=== PATIENT | male | born 1970 | race Caucasian/White ===

== ENCOUNTER 2018-07-14 09:55 | Day surgery (SDC) | payer OTHER ==
[2018-07-14] VITALS (9 sets, daily range): BP systolic 108–121; BP diastolic 69–85; PULSE 68–70; RESP 17–18; Ht 170.2 cm; Wt 75.7 kg
[~2018-07-14] VITALS: Ht 170.2 cm; Wt 75.7 kg
[~2018-07-14 09:55] MED LIST: APIX5TAB PO; CARV6.2579 PO; CEFAZOLIN 1 GM INJ ONE; CEFAZOLIN 1 GM/50 ML (PMX) 50 ML IVPB ONE; DIGITEK PO; LISI-313 PO; PROPOFOL 200 MG INJ ONE; SOT120 PO
[2018-07-14] MEDS ORDERED: APIX5TAB PO (10:28)
[2018-07-14] MEDS ORDERED: THIA50TA10 PO (10:29)
[2018-07-14] MEDS ORDERED: DILT240C62 PO (10:30)
[2018-07-14] MEDS ORDERED: LOSA25TA6 PO (10:30)
[2018-07-14] MEDS ORDERED: CARV6.2579 PO (10:32)
[2018-07-14] MEDS ORDERED: FOLI-49 PO (10:32)
--- NOTE | 2018-07-14 11:17 | PREAC ---
Date/Time of Note Date/Time of Note DATE: 07/14/18 TIME: 11:08 Anesthesia Eval and Record Evaluation Time Pre-Procedure Interview DATE: 07/14/18 TIME: 11:08 Age 47 Sex male NPO: 8 hrs Preoperative diagnosis battery end of life Planned procedure ICD battery change out Past Medical History Past Medical History: Includes Cardio: HTN, Dyslipidemia, Arrythmia (A-fib), PPM/AICD, CHF GI: GERD Psych: Anxiety Infection(s): Hep C Surgery & Anesthesia Issues No known issue Meds Anticoagulation: Yes Beta Patricia within 24 hr: Yes Reported Medications Carvedilol* (Carvedilol*) 6.25 Mg Tablet, 6.25 MG PO BID, #60 TAB 07/14/18 Folic Acid* (Folic Acid*) 1 Mg Tablet, 1 MG PO DAILY, TAB 07/14/18 Diltiazem Hcl* (Cartia XT*) 240 Mg Cap.sr.24h, 240 MG PO DAILY, #30 CAP 07/14/18 Losartan Potassium* (Losartan Potassium*) 25 Mg Tablet, 25 MG PO DAILY, TAB 07/14/18 Thiamine* (Vitamin B-1*) 50 Mg Tablet, 50 MG PO DAILY, TAB 07/14/18 Apixaban* (Eliquis*) 5 Mg Tablet, 5 MG PO BID, TAB 07/14/18 Discontinued Reported Medications Sotalol Hcl (Sotalol) 120 Mg Tablet, 80 MG PO BID, TAB 09/15/15 Lisinopril* (Lisinopril*) 5 Mg Tablet, 5 MG PO DAILY, #30 TAB 09/15/15 Apixaban* (Eliquis*) 5 Mg Tablet, 5 MG PO BID, TAB 09/15/15 Carvedilol* (Carvedilol*) 6.25 Mg Tablet, 6.25 MG PO BID, #60 TAB 09/15/15 [Digitek] No Conflict Check, PO 09/15/15 Meds reviewed: Yes Allergies Coded Allergies: iodine (Unverified Allergy, Severe, RASH, THROAT SWELLING, 07/14/18) Allergies Reviewed: Yes Labs/Studies Labs Reviewed: Reviewed by anesthesiologist Result Diagram: 07/14/18 1039 Laboratory Tests 07/14/18 10:39 test: N/A Studies: ECG (pacemaker), 2D Echo (EF 50%) Pre-procedure Exam Last vitals Vital Signs Date Temp Pulse Resp B/P (MAP) Pulse Ox O2 O2 Flow FiO2 Time Delivery Rate 07/14/18 98.0 70 18 120/75 98 Room Air 10:52 (90) Airway: Adequate mouth opening Mallampati: Mallampati I Teeth: Abnormal (missing teeth in right back bottom) Lung: Normal Heart: Normal ASA Physical Status ASA physical status: 3 Emergency: None Planned Anesthetic General/MAC: MAC Pre-operative Attestations Prior to commencing anesthesia and surgery, the patient was re-evaluated, there was verification of: *The patient's identity *The results of appropriate recent lab work and preoperative vital signs *The above evaluation not changing prior to induction *Anesthetic plan, risk benefits, alternative and complications discussed with patient/family; questions answered; patient/family understands, accepts and wishes to proceed. CIPRIANO ALMANZAR Jul 14, 2018 11:17
[2018-07-14] MEDS ORDERED: LIDOCAINE 1% (MPF) 30 ML INJ ONE (11:47)
[2018-07-14] MEDS ORDERED: FENTAnyl 50 MCG/ML VIAL ONE ×2 (11:54→15:35)
[2018-07-14] MEDS ORDERED: MIDAZOLAM 1 MG/ML 2 ML INJ ONE ×2 (11:54→15:19)
[2018-07-14] MEDS ORDERED: hydrALAzine 20 MG INJ IV PRN (12:00)
[2018-07-14] MEDS ORDERED: LABETALOL HCL 20MG INJ IV PRN (12:00)
[2018-07-14] MEDS ORDERED: HYDROmorphONE 1 MG/5 ML IV SYRINGE IV PRN ×2 (12:00)
[2018-07-14] MEDS ORDERED: FENTAnyl 50 MCG/ML VIAL IV PRN ×2 (12:00)
[2018-07-14] MEDS ORDERED: METOCLOPRAMIDE 10 MG INJ IV PRN (12:00)
[2018-07-14] MEDS ORDERED: ONDANSETRON 4 MG INJ IV PRN (12:00)
--- NOTE | 2018-07-14 12:15 | RADRPT ---
Vent Rate: 70 bpm RR Interval: 0 msec MS Interval: 184 msec QRS Duration: 104 msec QT Interval: 454 msec QTC Interval: 490 msec P-R-T [place]: 70 - -1 - 47 degrees Electronic atrial pacemaker Prolonged QT Abnormal ECG Electronically Signed By: Stanley Haley [id number]
[2018-07-14] MEDS ORDERED: BUPIVACAINE 0.5%/EPI (SDV) 30 ML INJ ONE (15:06)
--- NOTE | 2018-07-14 15:43 | SIPON ---
Date/Time of Note Date/Time of Note DATE: 07/14/18 TIME: 15:42 Operative Report Preoperative Diagnosis ICD change out Postoperative Diagnosis same due to battery end of life Operation/Procedure Performed icd change out Surgeon see signature line assistant auditor none Anesthesia: MAC Estimated blood loss: none Transfusion Required none Specimen icd change out Grafts/Implants none Complications none BRANDAN COSTELLO MD Jul 14, 2018 15:43
--- NOTE | 2018-07-14 15:45 | NUR ---
MARIELA JACOME AICD BATTERY EXCHANGE. VSS NO ACUTE RESP DISTRESS NOTED. SR ON TELE 69. COND STABLE. Addendum: 07/14/18 at 1615 by VINAY FOWLER RN Amended: Links added.
--- NOTE | 2018-07-14 16:25 | NUR ---
PT IS S/P AICD BATTERY CHANGE. DRESSING CDI. D/C INSTRUCTIONS AND F/U APPT DISCUSSED. PT DCD VIA W/C AND ESCORTED BY VOLUNTEER.
--- NOTE | 2018-07-14 16:30 | NUR ---
PACU TRANSFERRED TO [facility] IN STABLE COND. PAIN 0. UPDATED ON PT COND. REPORT GIVEN TO JAROD SHANKS. Addendum: 07/14/18 at 1651 by VINAY FOWLER RN Amended: Links added.
--- NOTE | 2018-07-14 23:50 | OPR ---
DATE OF OPERATION: 07/14/2018 INDICATION FOR THE PROCEDURE: End of life on the implantable cardiac defibrillator, nonischemic card iomyopathy, hypertension, hyperlipidemia. The patient has also had a history of VT; and therefore, the initial implant was for that reason. Now, the patient's device is at near end of life and therefore presents for replacement. NAME OF PROCEDURE: 1. ICD interrogation and reprogramming prior to procedure. 2. ICD interrogation and reprogramming post procedure. 3. Removal of the implantable defibrillator. 4. Implantation of a new defibrillator. 5. Right atrial pacing recording. 6. Right ventricular pacing recording. 7. O2 sat monitoring and blood pressure monitoring. 8. Pocket revision. 9. Defibrillation threshold testing. 10. External cardioversion x1. DESCRIPTION OF PROCEDURE: After informed consent was obtained by the patient, the patient was bisi t to the cardiac operating room where the patient's left chest and neck region was prepped and draped in usual sterile fashion. Following this, 1% lidocaine was used in order to infiltrate at the left deltopectoral groove. The device was then removed from the pocket. Following this, device and leads were tested one by one. Then, following this, the pocket was revised; and following this, the patie nt had the new device brought to the field. The new device and leads were connected to each other an d placed into the pocket. Pocket was sutured using 2-0 Vicryl and 4-0 Vicryl, and the patient had a DFT testing and cardioversion and left the cardiac operating room in stable condition. IMPLANTED MATERIAL: [employer] [address] 2357, serial number [id number]. The implant octavio e is 07/14/2018. EXPLANTED MATERIAL: [employer], [address] DR 2357-40Q, serial number [id number]. IMPRESSION: Successful replacement of an implantable defibrillator with no complications. Dictated By: BRANDAN COSTELLO MD, LP/JUSTIN Conf#: [id number] DID#: [id number]
== END 2018-07-14 17:03 | disposition home or self-care (01) ==
LOC: SDS 09:55
PROVIDERS: ATTEND Internal Medicine
DX: Z45.02 Encounter for adjustment and management of automatic implantable cardiac defibrillator (principal); I48.0 Paroxysmal atrial fibrillation; E78.5 Hyperlipidemia, unspecified; I11.0 Hypertensive heart disease with heart failure; I50.9 Heart failure, unspecified; I42.9 Cardiomyopathy, unspecified; R94.31 Abnormal electrocardiogram [ECG] [EKG]
CPT/HCPCS: 33263; 80048; 85025; 85610; 85730; 88300; 93005; J0690; J2250; J3010; Z7512; Z7610

== ENCOUNTER 2018-12-01 07:28 | Day surgery (SDC) | payer OTHER ==
[~2018-12-01] VITALS: Ht 170.2 cm; Wt 77.1 kg
[~2018-12-01 07:28] MED LIST changes: -CEFAZOLIN 1 GM INJ ONE; -CEFAZOLIN 1 GM/50 ML (PMX) 50 ML IVPB ONE; -DIGITEK PO; +DILT240C62 PO; +FOLI-49 PO; -LISI-313 PO; +LOSA25TA12 PO; -PROPOFOL 200 MG INJ ONE; -SOT120 PO; +THIA50TA10 PO
[2018-12-01 08:31] VITALS: Ht 170.2 cm; Wt 77.1 kg
[2018-12-01] MEDS ORDERED: AMIODARONE (08:40)
--- NOTE | 2018-12-01 09:19 | PREAC ---
Date/Time of Note Date/Time of Note DATE: 12/01/18 TIME: :18 Anesthesia Eval and Record Evaluation Time Pre-Procedure Interview DATE: 12/01/18 TIME: :18 Age 47 Sex male NPO: 8 hrs Preoperative diagnosis anemia Planned procedure egd, colonoscopy Past Medical History Past Medical History: Includes Cardio: HTN, Dyslipidemia, CAD, Arrythmia, PPM/AICD Musculoskeletal: Osteoarthritis GI: GERD Heme: Anemia Infection(s): Hep C Surgery & Anesthesia Issues No known issue Meds Anticoagulation: No Beta Patricia within 24 hr: No Reason Beta Patricia not given: Pt. not on B-Patricia Reported Medications [Amiodarone Daily] No Conflict Check 12/01/18 Carvedilol* (Carvedilol*) 6.25 Mg Tablet, 6.25 MG PO BID, #60 TAB 07/14/18 Diltiazem Hcl* (Cartia XT*) 240 Mg Cap.sr.24h, 240 MG PO DAILY, #30 CAP 07/14/18 Losartan Potassium* (Losartan Potassium*) 25 Mg Tablet, 25 MG PO DAILY, TAB 07/14/18 Apixaban* (Eliquis*) 5 Mg Tablet, 5 MG PO BID, TAB 07/14/18 Discontinued Reported Medications Folic Acid* (Folic Acid*) 1 Mg Tablet, 1 MG PO DAILY, TAB 07/14/18 Thiamine* (Vitamin B-1*) 50 Mg Tablet, 50 MG PO DAILY, TAB 07/14/18 Meds reviewed: Yes Allergies Coded Allergies: iodine (Unverified Allergy, Severe, RASH, THROAT SWELLING, 07/14/18) Allergies Reviewed: Yes Labs/Studies Labs Reviewed: Reviewed by anesthesiologist test: N/A Studies: ECG Pre-procedure Exam Airway: Adequate mouth opening, Adequate thyromental dist Mallampati: Mallampati II Teeth: Normal Lung: Normal Heart: Normal ASA Physical Status ASA physical status: 3 Emergency: None Planned Anesthetic General/MAC: Mask Pre-operative Attestations Prior to commencing anesthesia and surgery, the patient was re-evaluated, there was verification of: *The patient's identity *The results of appropriate recent lab work and preoperative vital signs *The above evaluation not changing prior to induction *Anesthetic plan, risk benefits, alternative and complications discussed with patient/family; questions answered; patient/family understands, accepts and wishes to proceed. JOSEFINA MICHELLE December 01, 2018 09:19
[2018-12-01] MEDS ORDERED: LIDOCAINE 100 MG SYRINGE ONE (09:22)
[2018-12-01] MEDS ORDERED: PROPOFOL 60 ML ONE (09:22)
[2018-12-01 09:23] VITALS: BP 167/88; PULSE 70; RESP 18
[2018-12-01] MEDS ORDERED: LIDOCAINE 4% SOLUTION 50 ML BTL ONE (09:28)
[2018-12-01 10:19] VITALS: BP 156/78; PULSE 69; RESP 22
--- NOTE | 2018-12-01 20:45 | CONS ---
DATE OF ADMISSION: 12/01/2018 DATE OF CONSULTATION: PATIENT NAME: CHOCO ESCOBEDO. TYPE OF CONSULTATION: Preoperative gastroenterology. I thank you very much for this kind referral. HISTORY OF PRESENT ILLNESS: Mr. Choco Escobedo is a 47-year-old male patient, who has been referred to me for further evaluation of iron deficiency anemia. The patient denies any history of rectal ble eding. No past history of colon neoplasm. He has family history of colon cancer. He never had scre ening colonoscopy. Appetite is good, and there is no weight loss. The patient also complains of chr onic heartburn and vomiting. The patient has been taking omeprazole without much relief. Not on non steroidal anti-inflammatory agents. No history of gallstones. He is status post therapy for hepatit is C and he is in remission. He is hypertensive. Not a diabetic. The patient has a history of atri al fibrillation and he has got ICD insertion. No lung problem. The patient has got chronic kidney d isease. He is status post surgery for perforated appendix. SOCIAL HISTORY: Nonsmoker. No alcohol abuse. FAMILY HISTORY: He has family history of colon cancer. ALLERGIES: ALLERGIC TO IODINE. MEDICATIONS: 1. Omeprazole. 2. Lisinopril. 3. Diltiazem. 4. Amiodarone. PHYSICAL EXAMINATION: VITAL SIGNS: He is 5 feet 7 inches tall and weighs 165 pounds. HEART: Normal heart sounds. LUNGS: Clear. ABDOMEN: Soft. No masses. Normal bowel sounds. NEUROLOGIC: Normal neurological exam. IMPRESSION: 1. Iron deficiency anemia. 2. The patient never had screening colonoscopy. 3. Gastroesophageal reflux disease and vomiting, not responding to therapy with omeprazole. 4. Hypertension. 5. History of atrial fibrillation and the patient was on Eliquis, and the commercial real estate appraiser stopped the E liquis because of the anemia. 6. Status post ICD insertion, status post therapy for hepatitis C and the patient is in remission. 7. Status post surgery for perforated appendix. 8. Family history of colon cancer. 9. ALLERGY TO IODINE. PLAN: 1. Colonoscopy and upper endoscopy for further evaluation. 2. The patient needs cardiac clearance for the procedures. 3. Because of the heart problem, the patient needs monitored anesthesia care. The procedures and possible complications are well explained to the patient. He understands and cons ents to the procedures. I thank you once again. With warmest personal regards, Dictated By: SUSHIL GOMEZ/JUSTIN Conf#: [id number] DID#: [id number]
--- NOTE | 2018-12-03 10:25 | PAC ---
Date/Time of Note Date/Time of Note DATE: 12/03/18 TIME: 10:25 Post-Anesthesia Notes Post-Anesthesia Note Last documented vital signs Vital Signs Date Temp Pulse Resp B/P (MAP) Pulse Ox O2 O2 Flow FiO2 Time Delivery Rate 12/01/18 69 22 156/78 97 Room Air 10:19 (104) 12/01/18 97.9 09:23 Activity: WNL Respiratory function: WNL Cardiovascular function: WNL Mental status: Baseline Pain reasonably controlled: Yes Hydration appropriate: Yes Nausea/Vomiting absent: Yes JOSEFINA MICHELLE December 03, 2018 10:25
== END 2018-12-01 11:30 | disposition home or self-care (01) ==
LOC: GIL 07:28
PROVIDERS: ATTEND Internal Medicine Gastroenterology
DX: D50.9 Iron deficiency anemia, unspecified (principal); K64.8 Other hemorrhoids; K44.9 Diaphragmatic hernia without obstruction or gangrene; K21.9 Gastro-esophageal reflux disease without esophagitis; K29.60 Other gastritis without bleeding
CPT/HCPCS: 43239; 45378; 88305; 88312; J2001; Z7610